=== PATIENT | female | born 1980 | race Hispanic/Latino ===

== ENCOUNTER → 2018-01-01 | Day surgery (SDC) | payer OTHER ==
--- NOTE | 2017-12-29 12:56 | History & Physical Pre-Op ---
General Information and HPI History of Present Illness: Nano is a [age] female with a long-standing and worsening complaint of painful hammertoes involving the left and right feet. The patient has undergone an extended course of conservative care, including shoe gear and activity modification, rest, immobilization and courses of NSAIDs. None of this is yielded her any significant relief. The patient presents today for preoperative surgical consultation. The patient was referred to our office from Ilya Londono DPM. Allergies/Medications Allergies: Coded Allergies: No Known Allergies (12/28/17) Past History Surgical History Pertinent Surgical History: non-contributory Review of Systems Review of Systems: Unremarkable except for that noted drainage present illness Exam & Diagnostic Data Last 24 Hrs of Vital Signs/I&O Intake & Output 12/29 1600 12/29 0800 12/29 0000 Intake Total Output Total Balance Patient 206 lb Weight Physical Exam: Lungs clear bilaterally. Heart sounds rate and rhythm regular. Lower extremity physical exam demonstrates intact pedal pulses bilaterally. Pulses dorsalis pedis and posterior tibial arteries are palpable bilaterally. Patient without any sensory motor deficits. Deep tendon reflexes grossly intact. Patient noted to have same and pain with palpation to the fourth and fifth digits dorsally left and right feet. Assessment/Plan Assessment/Plan: Painful hammertoes left and right feet. A lengthy discussion reviewing both surgical and conservative options was held the patient at bedside and the patient elects to go forward surgery despite the risks. As Ranked By This Provider Problem List: 1. Acquired hammer toe deformity of lesser toe of both feet Attending MD Review Statement Attending Statement Attending MD Statement: examined this patient
[~2018-01-01] VITALS: Ht 172.7 cm; Wt 93.4 kg
--- NOTE | 2018-01-01 09:47 | Operative Report ---
Operative/Inv Procedure Report Surgery Date: 01/01/18 Name of Procedure: 1 Arthroplasty 4th toe right foot 2 Arthroplasty 5th toe right foot 3 Arthroplasty 4th toe left foot 4 Arthroplasty 5th toe left foot 5 Intra-operative administration of ankle block anesthesia Pre-Operative Diagnosis: 1 Hammertoe 4th toe right foot 2 Hammertoe 5th toe right foot 3 Hammertoe 4th toe left foot 4 Hammertoe 5th toe left foot Post-Operative Diagnosis: The same Estimated Blood Loss: scant Surgeon/Material Handler 1St Shift: Alfonzo Westfall DPM, DPM Anesthesia: moderate sedation, block Operative/Procedure Note Note: After obtaining informed consent the patient was brought to the operating room and placed on the operating table in the supine position. The patient isn't securely fastened to the operating table utilizing safety belt. After administration of IV sedation, 10 mL of 0.5% Marcaine plain was infiltrated about the patient's left and right ankles. 2 well-padded ankle tourniquet was placed about the patient's bilateral lower extremity's. The left and right feet were then scrubbed, prepped and draped in usual aseptic manner. The left lower extremity was elevated to examine to limb, which point the ankle tourniquet inflated 250 mmHg. Attention directed dorsal aspect of the fourth fifth digits, where converging semielliptical incisions centered over the proximal phalangeal joint fourth fifth digits were incised with 15 blade. The ellipses of skin were freed and passed from the operative field. Transverse tenotomies were then performed exposing the heads of the proximal phalanges. These were then removed sagittal bone saw. The extensor tendons reapproximated 4-0 Vicryl and the skin is reapproximated 4-0 nylon. Incision just Xeroform, 4 x 4's, Kerlix and César wrap. The tourniquet was then deflated. Next, the right lower extremity is elevated to examine to limb, which point the ankle tourniquet inflated 250 mmHg. Attention directed dorsal aspect the right fourth fifth digits, where converging semielliptical incisions centered over the proximal phalangeal joints were incised with 15 blade. The ellipses of skin were freed and passed from the operative field. Transverse tenotomies were then performed exposing the heads of the proximal phalanges. These removed a sagittal bone saw. The extensor tendons is reprepped with 4-0 Vicryl. Skin edges reprepped for nylon and the incision just with Xeroform, 4 x 4's, Kerlix and César wrap. The patient was noted to tolerate both procedure and anesthesia well and the patient was transported from the operating room to recovery via signs stable best assess intact all digits bilateral feet. Please cc a copy of this dictation to Ilya Londono DPM.
== END ==
LOC: STS 01:26
DX: M20.42 Other hammer toe(s) (acquired), left foot (principal); M20.41 Other hammer toe(s) (acquired), right foot
CPT/HCPCS: J0690; J1100; J1885; J2001; J2250; J3490